=== PATIENT | female | born 1955 | race Caucasian/White ===

== ENCOUNTER → 2020-12-23 08:23 | Outpatient (CLI) | payer MEDICARE, BC, SELFPAY ==
--- NOTE | ~2020-12-23 | DEXA_ITS ---
Bone Density Report Name: Bridgette Arriola Age: 65 Sex: Female Ethnicity: White Date of : 1955 Indication: postmenopausal; screening for osteoporosis; height loss; prior fracture; hysterectomy; Referring Provider: Yanet [place] Study: Bone densitometry was performed. Exam Date: December 23, 2020 Accession number: [id number] Bone Density: Region BMD T-score Z-score Classification AP Spine (L1-L4) 1.173 1.1 2.9 Normal Femoral Neck (Left) 0.728 -1.1 0.4 Osteopenia Total Hip (Left) 0.876 -0.5 0.7 Normal Femoral Neck (Right) 0.747 -0.9 0.6 Normal Total Hip (Right) 0.906 -0.3 0.9 Normal Total Hip Mean 0.891 -0.4 0.8 Normal World Health Organization criteria for BMD impression classify patients as: Normal (T-score at or above -1.0), Osteopenia (T-score between -1.0 and -2.5), or Osteoporosis (T-score at or below -2.5). 10-year Fracture Risk(1): Major Osteoporotic Fracture 14% Hip Fracture 1.1% Reported Risk Factors: [place] (), Neck BMD=0.728, BMI=24.5, previous fracture (1) FRAX(R) Version 3.08. Fracture probability calculated for an untreated patient. Fracture probability may be lower if the patient has received treatment. Clinical Information Provided by Patient: Has had a low trauma fracture Has the following medical conditions: Hysterectomy, COPD Patient maximum height was 68 Menopause Age: 35 Drinks caffeinated beverages Onset of menses at age 15 Number of children 2 Impression: The patient has low bone mass, based on the Left Femoral Neck T-score. The patient has an estimated ten-year risk of hip fracture of 1.1% and an estimated ten-year risk of major fracture of 14%, based on the WHO FRAX algorithm. The patient has risk factors, including: previous fracture. Discussion: BONE DENSITY IS LOW AT ONE OR MORE SKELETAL SITES. This patient's lowest T-score is low at one or more skeletal sites. It meets the World Health Organization's (WHO) criteria for ?low bone mass? (T-score between -1.0 and -2.5). The patient's 10-year risk of fracture as calculated by FRAX is less than the threshold where pharmacological therapy is recommended by the National Osteoporosis Foundation (NOF). However, all treatment decisions require clinical judgment and consideration of individual patient factors, including patient preferences, comorbidities, previous drug use, risk factors not captured in the FRAX model (e.g., frailty, falls, vitamin D deficiency, increased bone turnover, interval significant decline in bone density) and possible under or overestimation of fracture risk by FRAX. The patient should follow a healthful lifestyle (good nutrition with adequate calcium and vitamin D, and appropriate weight-bearing exercise). Follow-Up: Consider repeating this study in 2 to 3 years to reasses
--- NOTE | ~2020-12-23 | MM_ITS ---
EXAMINATION: MM screening [facility] BI w klaus HISTORY: Screening mammogram, family history of breast cancer in her sister. TECHNIQUE: Craniocaudal and mediolateral oblique 3-D tomosynthesis images were obtained and synthetic 2-D images were generated. CAD analysis was submitted and interpreted. COMPARISON: 12/27/2014, 12/21/2014, 12/18/2012 BREAST PARENCHYMAL COMPOSITION: The breasts are heterogeneously dense, which may obscure small masses . FINDINGS: There are stable changes of excisional biopsy in the right breast. There is no evidence of suspicious mass, calcification, or architectural distortion to suggest malignancy in either breast. T here has been no suspicious interval change. IMPRESSION: 1. No mammographic evidence of malignancy. 2. Recommend routine screening mammography in one year. BI-RADS Category 2: Benign finding(s). Reviewed, dictated and finalized at location A. NSED CLINICAL PSYCHOLOGIST
== END ==
PROVIDERS: PCP Family Medicine; Visit Provider Nurse Practitioner Family
DX: Z12.31 Encounter for screening mammogram for malignant neoplasm of breast (principal); Z13.820 Encounter for screening for osteoporosis; M85.852 Other specified disorders of bone density and structure, left thigh
CPT/HCPCS: 77063; 77067; 77080

== ENCOUNTER → 2021-05-16 17:24 | Outpatient (CLI) | payer MEDICARE, BC, SELFPAY ==
--- NOTE | ~2021-05-16 | XR_ITS ---
EXAMINATION: XR chest 2V DATE: 05/16/2021 17:56 INDICATION: Cough TECHNIQUE: PA and lateral views of the chest were obtained. COMPARISON: 05/02/2019 FINDINGS: The lungs remain clear with no focal airspace opacities, pulmonary edema, pleural effusion or pneumot horax. The cardiomediastinal silhouette is normal. Moderate thoracic spondylosis. Suture anchors at t he right humeral head consistent with prior rotator cuff repair. IMPRESSION: 1. No acute cardiopulmonary disease. Reviewed, dictated and finalized at location A.
== END ==
PROVIDERS: PCP Family Medicine; Visit Provider Nurse Practitioner Family
DX: R05 Cough (principal)
CPT/HCPCS: 71046

== ENCOUNTER 2021-10-11 10:51 | Outpatient (CLI) | payer MEDICARE, BC, SELFPAY ==
--- NOTE | ~2021-10-11 | CT_ITS ---
EXAMINATION: CT diagnostic chest wo con DATE: 10/11/2021 11:11 INDICATION: Lung nodules TECHNIQUE: Computed tomography (CT) of the chest was performed without intravenous contrast. The dose -length product (DLP) was 66.59 mGy-cm. Automated exposure control and iterative reconstruction techn ique were employed. COMPARISON: 11/01/2019, 05/02/2019 FINDINGS: There are multiple stable pulmonary nodules which measure up to 5 mm and do not demonstrate significant interval change. No new or suspicious pulmonary nodule is identified. The lungs are free of acute opacities. There is no pleural effusion or pneumothorax. Mild emphysema is noted. No pathol ogically enlarged thoracic lymph nodes are identified. The heart size is normal. There is moderate th oracic spondylosis. A low-attenuation mass of the right hepatic lobe has been previously characterize d as a hemangioma. Suture anchors are noted in the right humeral head. IMPRESSION: 1. Stable scattered small pulmonary nodules, most consistent with old granulomatous disease. Reviewed, dictated and finalized at location A. GER ACTION IMPRESSION: 1. Stable scattered small pulmonary nodules, most consistent with old granuloma tous disease.
== END 2021-10-11 10:52 | disposition home or self-care (01) ==
LOC: ANHIMG 10:53
PROVIDERS: PCP Family Medicine; Visit Provider Nurse Practitioner Family
DX: R91.8 Other nonspecific abnormal finding of lung field (principal)
CPT/HCPCS: 71250

== ENCOUNTER → 2022-07-23 15:00 | Outpatient (CLI) | payer MEDICARE, BC, SELFPAY ==
--- NOTE | ~2022-07-23 | XR_ITS ---
EXAM: XR cervical spine 4-5V DATE: 07/23/2022 15:27 HISTORY: M79.89 - Other specified soft tissue disorders . COMPARISON: 05/25/2015. FINDINGS: Craniocervical association and atlantoaxial joint are intact. No prevertebral soft tissue swelling. Multilevel grade 1 listheses, likely on a degenerative basis and not significantly changed. Mild stable vertebral body height loss at C4-C6. Moderate disc space narrowing at C5-6. Multilevel f acet sclerosis and hypertrophy. Severe bilateral neural foraminal narrowing at C5-6. Imaging of the l eft neural foramen limited by positioning. Humeral head soft tissue anchors. IMPRESSION: Multilevel grade 1 degenerative listheses. Moderate degenerative disc disease at C5-6, wi th severe bilateral neural foraminal narrowing. Multilevel facet arthropathy. Reviewed, dictated and finalized at location K. IMPRESSION: Multilevel grade 1 degenerative listheses. Moderate degenerative di sc disease at C5-6, with severe bilateral neural foraminal narrowing. Multileve l facet arthropathy.
== END ==
PROVIDERS: PCP Nurse Practitioner Family; Visit Provider Nurse Practitioner Family
DX: M79.89 Other specified soft tissue disorders (principal); M50.322 Other cervical disc degeneration at C5-C6 level
CPT/HCPCS: 72050

== ENCOUNTER → 2022-08-12 08:48 | Outpatient (CLI) | payer MEDICARE, BC, SELFPAY ==
--- NOTE | ~2022-08-12 | MR_ITS ---
EXAMINATION: MR cervical spine wo con DATE: 08/12/2022 09:23 INDICATION: Other cervical disc degeneration. TECHNIQUE: Magnetic resonance imaging (MRI) of the cervical spine was performed without intravenous c ontrast. Sequences included sagittal T2-weighted FSE, sagittal T2-weighted FS FSE, sagittal T1-weight ed FSE, axial MERGE, and axial T2-weighted FSE. COMPARISON: Cervical spine radiographs 07/23/2022 FINDINGS: There is 2 mm anterolisthesis of T1 on T2. Vertebral body heights are normal. There is mild ly decreased disc height at C3-C4 and severely decreased disc height at C5-C6. The spinal cord signal intensity is normal. The following disc levels are specifically discussed: C2-C3: There is a central protrusion. There is no uncovertebral joint osteoarthritis. There is severe bilateral facet joint osteoarthritis. There is mild left neural foraminal stenosis. There is no cent ral canal stenosis. C3-C4: The disc does not extend beyond the endplate margin. There is mild left uncovertebral joint os teoarthritis. There is ankylosis of left facet joint with moderate hypertrophy. There is mild left ne ural foraminal stenosis. There is no central canal stenosis. C4-C5: The disc does not extend beyond the endplate margin. There is mild bilateral uncovertebral remington nt osteoarthritis. There is moderate right and severe left facet joint osteoarthritis. There is mild left neural foraminal stenosis. There is no central canal stenosis. C5-C6: The disc is bulging. There is severe bilateral uncovertebral joint osteoarthritis. There is mo derate bilateral facet joint osteoarthritis. There is moderate bilateral neural foraminal stenosis. T here is no central canal stenosis. C6-C7: There is a central protrusion. There is no uncovertebral joint osteoarthritis. There is severe bilateral facet joint osteoarthritis. There is no neural foraminal stenosis. There is no central can al stenosis. C7-T1: The disc does not extend beyond the endplate margin. There is no uncovertebral joint osteoarth ritis. There is severe bilateral facet joint osteoarthritis. There is mild bilateral neural foraminal stenosis. There is no central canal stenosis. IMPRESSION: 1. Severe cervical spondylosis. Reviewed, dictated and finalized at location A.
== END ==
PROVIDERS: PCP Family Medicine; Visit Provider Nurse Practitioner Family
DX: M50.30 Other cervical disc degeneration, unspecified cervical region (principal); M47.892 Other spondylosis, cervical region
CPT/HCPCS: 72141

== ENCOUNTER → 2022-10-07 10:13 | Outpatient (CLI) | payer MEDICARE, BC, SELFPAY ==
--- NOTE | ~2022-10-07 | US_ITS ---
US thyroid INDICATION: Nontoxic thyroid nodule. TECHNIQUE: Real-time sonographic images of the thyroid gland were obtained. COMPARISON: No prior studies for comparison. FINDINGS: The right thyroid lobe measures 4 x 1.5 x 1.6 cm. The left thyroid lobe measures 3.8 x 1.1 x 1.2 cm. In the right lobe there is a complex mostly solid hypoechoic mass which is wider than tall , ill-defined margins without internal echogenic foci measuring 1.8 x 1.2 x 1.4 cm, TR 4, biopsy juliet mmended. There is a small 4 mm cyst in the right lobe. Isthmus measures 2 mm. There are 2 small benig n-appearing cystic lesions in the left lobe, largest measuring 6 mm. Normal vascular flow is present. IMPRESSION: 1. Complex right thyroid mass measuring up to 1.8 cm, TR 4. Ultrasound-guided biopsy recommended. Reviewed, dictated and finalized at location A. PROCESSING EQUIPMENT REPAIRER
== END ==
PROVIDERS: PCP Family Medicine; Visit Provider Nurse Practitioner Family
DX: E04.1 Nontoxic single thyroid nodule (principal)
CPT/HCPCS: 76536

== ENCOUNTER 2022-10-18 12:47 | Outpatient (CLI) | payer MEDICARE, BC, SELFPAY ==
--- NOTE | ~2022-10-18 | US_ITS ---
EXAMINATION: US FNA w image guidance DATE: 10/18/2022 13:43 INDICATION: Nontoxic single thyroid nodule. TECHNIQUE: The procedure and its benefits and risks were discussed with the patient. Risks specifically discusse d included bleeding. The patient verbalized understanding of the risks and agreed to proceed. The nec k was prepped and draped in the usual sterile manner. 1% lidocaine was used for local anesthesia. 6 passes were made with a 25G needle into the lesion under ultrasound guidance. There were no immedia te complications. FINDINGS: Grayscale ultrasound images demonstrate needles advanced into a 1.9 cm nodule in right thyroid lobe f or biopsy. IMPRESSION: 1. Ultrasound-guided fine needle aspiration of a right thyroid nodule. Reviewed, dictated and finalized at location A. S MARKETING DIRECTOR
== END 2022-10-18 12:48 | disposition home or self-care (01) ==
PROVIDERS: PCP Family Medicine; Visit Provider Nurse Practitioner Family
DX: E04.1 Nontoxic single thyroid nodule (principal)
CPT/HCPCS: 10005; 88173; 88305